=== PATIENT | female | born 1975 | race Caucasian/White ===

== ENCOUNTER 2025-04-12 09:29 | Outpatient (AMB) | payer OTHER, SELFPAY ==
--- NOTE | 2025-04-12 09:32 | A.OFFVIS_ITS ---
Vital Signs 04/12/25 09:32 Height 5 ft Intake Visit Reasons: 6m follow up/ Conf Allergies acetaminophen (From Percocet) Allergy (Unknown, Verified 04/12/25 09:33) Unknown oxycodone (From Percocet) Allergy (Unknown, Verified 04/12/25 09:33) Unknown Medication List - Last Reconciled 04/12/25 by Marla Baker CNP albuterol sulfate 2.5 mg inhalation QID PRN apixaban (Eliquis) 5 mg PO Q12H [id number]-kcmxarukzctoo-ofmx 50-325-40 mg tabs PO cholecalciferol (vitamin D3) 50 mcg PO DAILY lamotrigine 150 mg PO DAILY montelukast 10 mg PO BEDTIME ondansetron HCl 4 mg PO DAILY PRN 30 days semaglutide (weight loss) (Wegovy) 1.7 mg subcut QWEEK sumatriptan succinate 50 mg PO DAILY PRN 30 days venlafaxine ER 75 mg PO DAILY verapamil ER 120 mg PO BEDTIME HPI Comments Details: 49-year-old RH woman with bipolar disorder, anxiety disorder, depression, ast hma, obesity s/p gastric surgery in March 2020, pulmonary embolism two weeks after surgery, cerebral venous sinus thrombosis, and headaches. She was doing okay. Migraines happened here and there, about 1-2x/week, but less severe with medication. Sumatriptan and butalbital as needed helped. She was still having some nausea with headaches and ondansetron helped. [facility] [place] Medical History (Updated 04/12/25 @ 09:35 by Marla Baker CNP) Pseudotumor cerebri MCI (mild cognitive impairment) GERD (gastroesophageal reflux disease) Asthma Insomnia Depression with anxiety Bipolar disorder Migraine without aura Review of Systems Const Denies chills, Denies daytime sleepiness, Denies difficulty sleeping, Denies fatigue, Denies fever(s), Denies frequent falls, Reports headache(s), Denies increased appetite, Denies poor appetite, Denies snoring, Denies weakness, Denies weight gain and Denies weight loss Eyes Denies loss of vision ENT Denies vertigo, Denies dizziness and Reports headache(s) Card Denies chest pain at rest, Denies chest pain with activity, Denies syncope, Denies leg edema and Denies palpitations Resp Denies snoring GI Denies constipation, Denies heartburn, Denies diarrhea and Denies nausea Denies urinary frequency, Denies urinary incontinence and Denies urinary urgency Musc Denies abnormal gait, Denies numbness and Denies tingling Skin/Breast Denies dry skin and Denies rash Neuro Denies abnormal gait, Denies vertigo, Denies dizziness, Denies syncope, Denies frequent falls, Reports headache(s), Denies lack of coordination, Denies loss of vision, Denies memory loss, Denies numbness, Denies restless legs, Denies se izure-like activity, Denies tingling, Denies paresthesias, Denies tremor(s) and Denies weakness Psych Denies anxiety, Denies depression, Denies auditory hallucinations, Denies memory loss, Denies visual hallucinations and Denies suicidal ideation Endo Denies fatigue and Denies palpitations Physical Exam Const Other: General Appearance:? normal, in no acute distress. Skin:? no rashes, no significant birthmarks. Heart:? S1, S2 normal, no murmurs. Lungs:? clear anteriorly and posteriorly. Extremities:? no edema. Psych:? alert, oriented, cognitive function intact, cooperative with exam. Neuro Other: Mental Status:?Normal attention, orientation, memory and affect.? Cranial Nerves:?Pupils are equal, round and reactive to light. External occular muscles are intact. Visual tadeo are full. Face is symmetrical. Facial sensations are normal. Tongue is midline. Palate elevates symmetrically. Shoulder shrugging is normal. Hearing to bedside conversation is normal. Motor Examination:?Normal muscle tone, bulk and strength,?Deep tendon reflexes are 2+,?Plantars are flexor.? Sensory Exam:?....? Coordination:?No ataxia,?no titubation.? Gait Exam: Within normal limits. Cerebellar Signs:?Ydaeit-el-nlrs and euaw-it-xnox is normal.? Extrapyramidal System:?No tremor, rigidity with normal facial expressions.? Pronator Drift:?Not present.? Involuntary Movements:?No tremors seen.? Speech:?Normal.? Results Reviewed Results Reviewed: MRI brain WO at [facility] in January 2021: multiple dural venous thrombosis with mild thalamic edema (reported) CTA brain at [facility] in January 2021: [place] CT brain at [facility] in January 2021: OK. Assessment & Plan Assessment & Plan (1) Migraine without aura: Code(s): G43.009 - Migraine without aura, not intractable, without status migrainosus Category: Medical Qualifiers: Status migrainosus presence: without status migrainosus Intractability: not intractable Qualified Code(s): G43.009 - Migraine without aura, not intractable, without status migrainosus Plan: Continue verapamil ER 120mg 1 tablet daily. Continue venlafaxine ER 75mg 1 capsule daily. Continue sumatriptan 50mg 1 tablet as needed for headache. Continue cfidijgimg-FGEY-rjixndrt 50-325-40mg 2 tablets as needed for headache #10 for 30 days. Continue ondansetron 4mg 1 tablet as needed for nausea. Plan Meds tried: Topaamx, sumatriptan, fiorecet, naproxen, acetazolamide (paresthesias), venlafaxine, propranalol Medications: New verapamil ER 120 mg PO DAILY 90 tabs 1RF 90 days sumatriptan succinate take 1 tab at onset of headache; if no relief may repeat 1 tab after at least 2 hrs; PO 10 tabs 5RF 30 days ondansetron 4 mg PO DAILY PRN 10 tabs 5RF nausea and vomiting 30 days Discontinued ondansetron HCl Discontinued Reason: Order 4 mg PO DAILY 30 days PRN 20 tabs 2RF nausea sumatriptan succinate Discontinued Reason: Order 50 mg PO DAILY 30 days PRN 10 tabs 5RF headache verapamil ER Discontinued Reason: Order 120 mg PO BEDTIME Coding Level of Care Code Est Pt Level 4 (51432) Diagnoses Migraine without aura and without status migrainosus, not intractable G43.009 Status migrainosus presence: without status migrainosus Intractability: not intractable
--- OUTSIDE RECORDS SUMMARY | 2025-04-12 09:40 | XMS_ITS ---
Author Name [facility] Organization Unknown Care Team Organization Name Specialty Phone Email Start Date End Da te [facility] Lori Nolan Primary Care 06/15/2023 04/30/[address] [facility] Florence Huitron Primary Care 05/19/2023 04/30/[address] [facility] JUAN Primary Care 03/17/2023 04/30/2024
--- OUTSIDE RECORDS SUMMARY | 2025-04-12 09:40 | XMS_ITS | Clinical Summary ---
Author Organization [facility] Address [address] [place] [address] Care Team Providers Care Rfid Specialist Name Role Phone Lori Nolan MD Primary Care Provider [phone] Allergies Active Allergy Reactions Criticality Noted Date Comments Oxycodone-Acetaminophen Dermatitis,Rash Low 020 Medications Medication Sig Dispensed Refills Start Date End Date Status Albuterol Sulfate 108 (90 Base) MCG/ACT AEPB Inhale into the lungs. 0 Active butalbital-acetami nophen-caffeine (FIORICET, ESGIC) 50-325-40 MG per tablet Take 1 tablet by mouth every 4 (four) hours as needed for pain. 0 Active albuterol (PROVENTIL) 2.5 MG/0.5ML NEBU nebulizer solution Take 0.5 mL (2.5 mg total) by nebulization every 4 (four) hours as needed. 0 Active Melatonin 10 MG TABS Take 10 mg by mouth. 0 Active Multiple Vitamins-Minerals (DEKAS BARIATRIC) CHEW Chew by mouth daily. 0 Active montelukast (SINGULAIR) 10 MG tablet Take 1 tablet (10 mg total) by mouth every night at bedtime. 0 Active ferrous sulfate 325 (65 FE) MG tablet Take 1 tablet (325 mg total) by mouth every morning with breakfast. 0 Active pantoprazole (PROTONIX) 40 MG tablet Take 1 tablet (40 mg total) by mouth every morning on an empty stomach. 0 Active docusate sodium (COLACE) 100 MG capsule Take 1 capsule (100 mg total) by mouth 2 (two) times a day. 0 Active Budesonide-Formote rol Fumarate (SYMBICORT IN) Inhale into the lungs. 0 Active venlafaxine (EFFEXOR) 37.5 MG tablet Take 1 tablet (37.5 mg total) by mouth 2 (two) times a day. 0 Active Eliquis 5 MG TABS tablet TAKE 1 TABLET BY MOUTH EVERY 12 HOURS 180 tablet 1 03/14/2024 Active Active Problems Problem Noted Date Diagnosed Date Cerebral vein thrombosis 03/04/2021 Acute pulmonary embolism without acute cor pulmo nale 06/02/2020 Social History Tobacco Use Types Packs/Day Years Used Date Smoking Tobacco: Never Assessed Sex and Gender Information Value Date Recorded Sex Assigned at Not on file Gender Identity Not on file Sexual Orientation Not on file Job Start Date Occupation Industry Not on file Not on file Not on file Last Filed Vital Signs Vital Sign Reading Time Taken Comments Blood Pressure 105/66 03/19/2024 9:11 AM EDT Pulse 70 03/19/2024 9:11 AM EDT Temperature 36.9 C (98.5 F) 03/19/2024 9:11 AM EDT Respiratory Rate - - Oxygen Saturation 100% 03/19/2024 9:11 AM EDT Inhaled Oxygen Concentration - - Weight 86.2 kg (190 lb) 03/19/2024 9:11 AM EDT Height 152.4 cm (5') 03/19/2024 9:11 AM EDT Body Mass Index 37.11 03/19/2024 9:11 AM EDT Plan of Treatment Health Maintenance Due Date Last Done Comments Hepatitis C Screening 1974 Depression Screening 1986 Preventative Health Evaluation 1992 Cervical Cancer Screening (Pap Smear) 1995 Colon Cancer Screening (Colonoscopy) 2019 COVID-19 Vaccine ( season) 2024 05/16/2021, 04/25/2021 Breast Cancer Screening (Mammogram) 2024 Shingrix-Zoster Vaccine (1 of 2) 2024 Influenza Vaccine (#1) 2025 , 07/05/2013, 07/30/2012, Additional history exists DTap / Tdap / Td (3 - Td or Tdap) 11/07/2033 11/07/2023, 10/11/2008 Hepatitis B Vaccines Completed 06/28/2008, 01/26/2008, 12/29/2007 Pneumococcal Vaccine Aged Out 10/07/2023, 02/15/20 07 No longer eligible based on patient's age to complete this topic RSV Ped < 20 months Aged Out No longe r eligible based on patient's age to complete this topic Care Teams Rfid Specialist Relationship Specialty Start Date End Date Lori Nolan MD [address] [place] [id number] PCP - General Internal Medicine 09/15/23
== END 2025-04-12 09:48 | disposition home or self-care (01) ==
LOC: HO.HSM 09:29
PROVIDERS: PCP Internal Medicine; Visit Provider Registered Nurse
DX: G43.009 Migraine without aura, not intractable, without status migrainosus (principal)
CPT/HCPCS: 99214